=== PATIENT | male | born 1985 | race Caucasian/White ===

== ENCOUNTER 2024-07-24 10:39 | Emergency (ER) | payer BC, SELFPAY ==
--- NOTE | ~2024-07-24 | XR_ITS ---
HISTORY: low back pain injury COMPARISON: None TECHNIQUE: 2 views of the lumbar spine were performed FINDINGS: No acute compression fracture is present. Bone mineralization is age-appropriate. No significant degenerative disease. IMPRESSION: Unremarkable radiographic evaluation of the lumbar spine, as detailed above. Reviewed, dictated and finalized at location A. SPECIALIST
[2024-07-24 10:47] VITALS: BP 136/72; PULSE 68; RESP 16; TEMP 36.6; O2SAT 100
--- NOTE | 2024-07-24 10:50 | ED_ITS ---
HPI - Back Pain/Injury General Chief Complaint: Back Pain/Injury Stated Complaint: Back Injury Time Seen by Provider: 07/24/24 10:54 Source: patient Mode of arrival: ambulatory Limitations: no limitations History of Present Illness HPI Narrative: 38-year-old male presented for complaint of mid lower back and right hip pain after injury Last night while playing hockey. States he was wearing a helmet but struck his head on the goal post and fell onto the ice. Admits to feeling dazed afterwards but denies LOC. Also states his left leg gives out at times today. Endorses itching to the outer left leg. Rates low back pain 5/10. Last night he took [employer], ibuprofen, and a muscle relaxer. Denies pain radiating into the hips or legs, numbness, tingling, weakness of the lower extremities, or change in gait, saddle paresthesia or loss of bowel or bladder. Related Data Allergies Allergy/AdvReac Type Severity Reaction Status Date / Time No Known Allergies Allergy Unverified 07/24/24 10:52 Review of Systems Review of Systems: CONSTITUTIONAL: Denies body aches, fever, chills EYES: Denies visual changes CARDIOVASCULAR: Denies chest pain, palpitations, or edema. RESPIRATORY: Denies cough or dyspnea. GASTROINTESTINAL: Denies abdominal pain, nausea, vomiting, or diarrhea. SKIN: Denies rash, itching, or wounds. MUSCULOSKELETAL: reports back pain NEUROLOGIC: Denies headache, numbness, tingling, or weakness. All systems reviewed & are unremarkable except as noted in HPI and below PMFSH Past Medical History Medical History (Updated 07/24/24 @ 12:30 by Beulah Jeong APRN) Fractured skull Comments At time of signature, I have reviewed and agree with nursing past medical, surgical, social and family history unless otherwise noted. Please see nursing chart for further information. There is no relevant family history pertinent to the presenting complaint Exam Narrative: GENERAL: Well-appearing. HEAD: Normocephalic, atraumatic. EYES: conjunctivae clear PERRLA, EOMI NECK: Supple. full ROM CHEST: Speaks in full sentences. No respiratory distress. HEART: Regular rate and rhythm. Normal and equal peripheral pulses. MUSC: No Vertebral point tenderness. No paraspinal tenderness. BLEs with normal strength and sensation, normal range of motion. Patellar reflexes normal bilaterally. No ecchymosis, No open wounds, or obvious deformity; alignment normal, pulse palpable and equal bilaterally, skin warm, dry, pink. Capillary refill less than 3 seconds. Gait steady. SKIN: Warm, dry, no rash. NEURO: Alert and oriented x3. Course Course Emergency Course: Patient is aware of diagnosis, understands and agrees to treatment plan. Anticipatory guidance given. Patient agrees to follow-up as directed and is aware of reasons to seek care at the emergency department. Portions of this record may have been created with voice recognition software Level of Care: Express Care Visit Vital Signs Vital signs: Vital Signs Temperature 98 F 07/24/24 10:47 Pulse Rate 68 07/24/24 10:47 Respiratory Rate 16 07/24/24 10:47 Blood Pressure 136/72 07/24/24 10:47 Pulse Oximetry 100 07/24/24 10:47 Oxygen Delivery Room Air 07/24/24 10:47 Temperature 98 F 07/24/24 10:47 Pulse Rate 68 07/24/24 10:47 Respiratory Rate 16 07/24/24 10:47 Blood Pressure 136/72 07/24/24 10:47 Pulse Oximetry 100 07/24/24 10:47 Oxygen Delivery Room Air 07/24/24 10:47 Reviewed MDM - Back Pain/Injury MDM Narrative Medical decision making narrative: Xray reviewed with pt. Reviewed Rx's. Pt requested vicodin advised against this at this time. Advised supportive measures and s/s to go to the ER at length. Pt is stable and appropriate for outpt treatment and follow up with pcp. Differential Diagnosis Differential diagnosis: Likely lumbar radiculopathy, sciatica, strain of lumbar region, renal colic, pyelonephritis and discitis Imaging Data Radiologist's impression: Patient: Thomas Boggs : 1985 MR#: [id number] Age: 38 Acct:[id number] Loc: [facility] ADM Date: 07/24/24Attending Dr: Ordering Physician: Beulah Jeong APRN Date of Service: 07/24/24 Procedure(s): XR lumbar spine 2-3V Accession Number(s): [id number] cc: Yanick, Yaa Morataya; Beulah Jeong APRN~ HISTORY: low back pain injury COMPARISON: None TECHNIQUE: 2 views of the lumbar spine were performed FINDINGS: No acute compression fracture is present. Bone mineralization is age-appropriate. No significant degenerative disease. IMPRESSION: Unremarkable radiographic evaluation of the lumbar spine, as detailed above. Discharge Plan Discharge Clinical Impression: Low back pain Patient Disposition: Home, Self-Care Condition: Stable Instructions: Acute Low Back Pain (ED) Additional Instructions: Please follow up with your Primary Care Doctor within 48-72 hours - call for an appointment. Avoid lifting. pushing. pulling, or anything that worsens the pain. Walking and other gentle exercising several times a week has been shown to improve back pain; bed rest is not recommended. Take Motrin 800mg every 6-8 hours with food for the next 2-3 days, along with Tylenol 1000mg every 8 hours take steroid as directed Take muscle relaxers every 8 hours as needed for muscle spasm- do not drive or make any important decisions while on this medication for it can make you drowsy. Over the counter pain cream like icy/hot or biofreeze, or Salon pas/lidocaine 4% patch. You may apply heat or cold to the area as needed. go to the ER for any worsening symptoms or concerns Patient Language: Mongolian Prescriptions: New cyclobenzaprine 10 mg tablet 10 mg PO TID PRN (Reason: muscle spasm) Qty: 10 0RF prednisone 20 mg tablet 20 mg PO DAILY Qty: 12 0RF Rx Instructions: take 3 tablets daily for 2 days, then 2 tablets daily for 2 days then 1 tablet daily for 2 days Follow-up/Referrals: Yanick,Yaa Morataya [Primary Care Provider] - Stand Alone Forms: Work/School Release IP Time of Disposition: 12:26
== END 2024-07-24 12:28 | disposition home or self-care (01) ==
PROVIDERS: Emergency Provider Nurse Practitioner Family; PCP Nurse Practitioner
DX: M54.50 Low back pain, unspecified (principal)
CPT/HCPCS: 72100; 99203; G0463